=== PATIENT | male | born 1970 | race Caucasian/White ===

== ENCOUNTER 2019-09-06 19:05 | Inpatient (IN) | payer OTHER ==
[~2019-09-06 19:05] MED LIST: Iopamidol 370 76% 50 ML VIAL FS ONE; Iopamidol-370 76% 500 ML 1 ML ONE
[2019-09-06 19:43] LABS: #Basophils 0.1 thou/uL (0.0-0.2); #Eosinphils 0.1 thou/uL (0.0-0.7); #Lymphocytes 1.6 thou/uL (1.20-3.40); #Monocytes 0.7 thou/uL (0.11-0.59); Hemoglobin 15.7 g/dL (14.0-18.0); Mean Corpuscular HGB CONC 33.2 g/dL (32.0-36.0); Mean Corpuscular Hemoglobin 30.9 pg (27.0-31.0); Mean Corpuscular Volume 93.1 fL (78.0-98.0); Mean Platelet Volume 7.5 fL (7.4-10.4); Platelet Count 332 thou/uL (130-400); RBC Distribution Width 12.1 % (11.5-14.5); Red Blood Cell (RBC) Count 5.09 mill/uL (4.70-6.10); White Blood Cell (WBC) Count 9.5 thou/uL (4.8-10.8)
--- NOTE | 2019-09-06 20:01 | RAD ---
CHEST ONE VIEW: 09/06/19 HISTORY: Abdominal pain. COMPARISON: None. FINDINGS: The lungs are clear. No pneumothorax or effusion. The cardia silhouette and mediastinal contours are within normal limits. No acute osseous abnormality. IMPRESSION: No acute intrathoracic abnormality. POS: HOME
[2019-09-06 20:06] LABS: ALT (SGPT) 24 U/L (8-55); AST (SGOT) 14 U/L (5-34); Albumin 4.6 g/dL (3.5-5.0); Alkaline Phosphatase 77 U/L (40-110); Anion Gap 13 mmol/L (10-20); BUN (Urea Nitrogen) 18 mg/dL (8.9-20.6); Bilirubin, Total 0.4 mg/dL (0.2-1.2); Calc. Creatinine Clearance 0 mL/min (70-130); Calcium 9.8 mg/dL (7.8-10.44); Carbon Dioxide 27 mmol/L (22-29); Chloride 102 mmol/L (98-107); Estimated GFR-MDRD 79; Globulin 3.1 g/dL (2.4-3.5); Glucose 79 mg/dL (70-105); Potassium 3.9 mmol/L (3.5-5.1); Protein, Total 7.7 g/dL (6.0-8.3); Sodium 138 mmol/L (136-145)
--- NOTE | 2019-09-06 21:44 | CT ---
CT ABDOMEN AND PELVIS WITH CONTRAST: 09/06/19 HISTORY: Small bowel obstruction. COMPARISON: Radiograph same day of the abdomen. FINDINGS: Lung bases are clear. No pericardial effusion. Normal proximal small bowel rotation. There is cholelithiasis. No hydronephrosis. The adrenal glands are unremarkable. There are mildly distended loops of mid small bowel with contrast reaching the ileum. No distinct tra nsition point. The appendix is visualized and is normal. No mesenteric edema. The aortic contour is normal. No acute osseous abnormality. Advanced degenerative disc space disease at L5-S1 with superior end pl ate erosion and Schmorl's node at S1. Celiac trunk and superior mesenteric arteries are patent. IMPRESSION: 1. Mild dilatation of proximal small bowel loops with contrast extending to the ileum. There is no discrete transition point nor mesenteric fluid. Findings suggestive of an ileus versus a very low grade small bowel obstruction without transitional point identified. Follow-up radiographs of the abd omen in 8 to 12 hours recommended to evaluate for contrast transit. 2. Cholelithiasis without cholecystitis. POS: HOME
[2019-09-06 21:55] LABS: Bilirubin Negative (Negative); Blood, Urine Negative (Negative); Clarity Clear (Clear); Glucose, Urine (Dipstick) Normal (Negative); Leukocyte Negative Leu/uL (Negative); Nitrite Negative (Negative); Protein, Urine (Dipstick) Negative (Neg-Trace); Urobilinogen Normal mg/dL (Less than 2)
[2019-09-06] MEDS ORDERED: Benzocaine 20% Spray 60 ML CAN ONE (22:10)
[2019-09-06] MEDS ORDERED: Ondansetron PF 4 MG/2 ML Vial IVP PRN (22:54)
[2019-09-06] MEDS ORDERED: Ondansetron ODT 4 MG TAB PO PRN (22:54)
[2019-09-06] MEDS ORDERED: Morphine 2 MG/ML SYRINGE SLOW IVP PRN (22:59)
--- NOTE | 2019-09-06 23:04 | PDOC.HHP ---
Hospitalist HPI - History of Present Illness Abdominal pain History of Present Illness: PCP: Heri The patient is a 49/M with no significant PMH that presents to the ER for above complaint. The patient reports having abdominal pain x 4 days, describes as diffuse cramping with associated intermittent diarrhea and decreased appetite. He went to his PCP this morning. KUB showed concern for SBO. She instructed him to go to the ER. Denies any emesis or blood in stools. Denies any previous abdominal surgeries, recent travel or ingestion of uncooked foods. Reports recent bronchitis infection, treated with 2 different antibiotics. Denies any fever or chills. Has no other complaints at this time. ED Course: VS 98.2F, 121/84, 91, 16, 97%RA EKG NSR CT abd/pelvis mild dilation proximal small bowel loops extending to ileum, ileus vs low grade SBO WBC 9.5 LA 0.9 UA and CMP unremarkable CXR no acute process Allergies: NKDA Home Medications: 1. Simvastatin unk. dose Hospitalist ROS - Review of Systems Constitutional: denies: fever, chills, sweats, weakness, malaise, other Eyes: denies: pain, vision change, conjunctivae inflammation, eyelid inflammation, redness, other ENT: denies: ear pain, ear discharge, nose pain, nose discharge, nose congestion , mouth pain, mouth swelling, throat pain, throat swelling, other Respiratory: denies: cough, dry, shortness of breath, hemoptysis, SOB with excertion, pleuritic pain, sputum, wheezing, other Cardiovascular: denies: chest pain, palpitations, orthopnea, paroxysmal noc. dyspnea, edema, light headedness, other Gastrointestinal: reports: abdominal pain, diarrhea (intermittent). denies: nausea, vomiting Genitourinary: denies: dysuria, frequency, incontinence, hematuria, retention, other Neurological: denies: weakness, numbness, incoordination, change in speech, confusion, seizures, other Hospitalist History - Past Medical History Source: patient Cardiac: reports: Hyperlipidemia - Past Surgical History Past Surgical History: reports: no pertinent history - Family History Family History: reports: no pertinent history Other Family History: non contributory to this case - Social History Smoking Status: Never smoker Alcohol: reports: Rare Drugs: reports: none Living Situation: With Family 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, 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 Activity level: independent ambulation - Exam General Appearance: NAD, awake alert Eye: anicteric sclera ENT: normocephalic atraumatic ENT - other findings: NGT in place to low intermittent suction Neck: supple, no JVD Heart: RRR, no murmur, no gallops, no rubs, normal peripheral pulses Respiratory: CTAB, no wheezes, no rales, no ronchi, no tachypnea Gastrointestinal: soft, no guarding, no rigidity, distended, diminished bowl sounds Gastrointestinal - other findings: mildly tender to palpation, diffuse Extremities: no cyanosis, no edema Neurological: no focal deficits Psychiatric: normal affect, A&O x 3 Hospitalist Results - Labs Result Diagrams: 09/06/19 19:09/06/19 19:27 Lab results: WBC 9.5 thou/uL (4.8-10.8) 09/06/19 19: Hgb 15.7 g/dL (14.0-18.0) 09/06/19 19: Hct 47.4 % (42.0-52.0) 09/06/19 19: MCV 93.1 fL (78.0-98.0) 09/06/19 19: Plt Count 332 thou/uL (130-400) 09/06/19 19: Neutrophils % 74.0 % (42.0-75.0) 09/06/19 19:27 Sodium 138 mmol/L (136-145) 09/06/19 19:27 Potassium 3.9 mmol/L (3.5-5.1) 09/06/19 19:27 Chloride 102 mmol/L (98-107) 09/06/19 19:27 Carbon Dioxide 27 mmol/L (22-29) 09/06/19 19:27 BUN 18 mg/dL (8.9-20.6) 09/06/19 19:27 Creatinine 1.00 mg/dL (0.7-1.3) 09/06/19 19:27 Glucose 79 mg/dL (70-105) 09/06/19 19:27 Lactic Acid 0.9 mmol/L (0.5-2.2) 09/06/19 19:27 Calcium 9.8 mg/dL (7.8-10.44) 09/06/19 19:27 Total Bilirubin 0.4 mg/dL (0.2-1.2) 09/06/19 19:27 AST 14 U/L (5-34) 09/06/19 19:27 ALT 24 U/L (8-55) 09/06/19 19:27 Alkaline Phosphatase 77 U/L (40-110) 09/06/19 19:27 Serum Total Protein 7.7 g/dL (6.0-8.3) 09/06/19 19:27 Albumin 4.6 g/dL (3.5-5.0) 09/06/19 19:27 Urine Ketones Negative mg/dL (Negative) 09/06/19 21:39 Urine Blood Negative (Negative) 09/06/19 21:39 Urine Nitrite Negative (Negative) 09/06/19 21:39 Ur Leukocyte Esterase Negative Marc/uL (Negative) 09/06/19 21:39 - EKG Interpretation EKG: NSR - Radiology Interpretation CT scan - abdomen Status: report reviewed by me Chest x-ray Status: report reviewed by me Hospitalist H&P A/P - Problem (1) SBO (small bowel obstruction) Code(s): K56.609 - UNSP INTESTNL OBST, UNSP TO PARTIAL VERSUS COMPLETE OBST Status: Acute Assessment and Plan: Admit to medical floor, inpatient status Expected length of stay > [address] + partial SBO vs ileus LA 0.9, WBC 9.5 Will confirm placement NGT, put to intermittent suction Will start IVF hydration Will consult general surgery Will add zofran and morphine prn Will start PPI Will check lipase (2) Diarrhea Code(s): R19.7 - DIARRHEA, UNSPECIFIED Status: Acute Assessment and Plan: Had recent abx usage, describes as intermittent, had formed stools yesterday Will continue to monitor, likely secondary to problem #1 (3) Hyperlipidemia Code(s): E78.5 - HYPERLIPIDEMIA, UNSPECIFIED Status: Chronic Assessment and Plan: Takes simvastatin unknown dosage Will have nursing reconcile medications - Plan Plan: Consult PT SCDs for DVT prophylaxis Protonix for GI prophylaxis Full Code HALEY Quispe at [phone] Lerner
[2019-09-07 00:11] VITALS: BMI 32.5
[2019-09-07] MEDS: Sodium Chloride 0.9% 1,000 ML IV SCH ×2 (00:34→08:12)
[2019-09-07 05:47] LABS: #Basophils 0.1 thou/uL (0.0-0.2); #Eosinphils 0.2 thou/uL (0.0-0.7); #Lymphocytes 1.8 thou/uL (1.20-3.40); #Monocytes 0.7 thou/uL (0.11-0.59); %Basophils 0.7 % (0.0-1.0); %Eosinophils 2.2 % (0.0-10.0); %Lymphocytes 23.1 % (21.0-51.0); %Monocytes 8.7 % (0.0-10.0); %Neutrophils 65.3 % (42.0-75.0); Hemoglobin 13.9 g/dL (14.0-18.0); Mean Corpuscular HGB CONC 31.9 g/dL (32.0-36.0); Mean Corpuscular Hemoglobin 29.9 pg (27.0-31.0); Mean Corpuscular Volume 93.6 fL (78.0-98.0); Mean Platelet Volume 7.4 fL (7.4-10.4); Platelet Count 286 thou/uL (130-400); RBC Distribution Width 12.1 % (11.5-14.5); Red Blood Cell (RBC) Count 4.66 mill/uL (4.70-6.10); White Blood Cell (WBC) Count 7.6 thou/uL (4.8-10.8)
[2019-09-07 06:11] LABS: Anion Gap 13 mmol/L (10-20); BUN (Urea Nitrogen) 14 mg/dL (8.9-20.6); Calc. Creatinine Clearance 149 mL/min (70-130); Calcium 8.7 mg/dL (7.8-10.44); Carbon Dioxide 25 mmol/L (22-29); Chloride 105 mmol/L (98-107); Estimated GFR-MDRD Greater than 90; Glucose 79 mg/dL (70-105); Potassium 3.9 mmol/L (3.5-5.1); Sodium 139 mmol/L (136-145)
--- NOTE | 2019-09-07 07:16 | RAD ---
CHEST 1 VIEW: Date: 09/06/2019 HISTORY: NG tube placement. COMPARISON: Radiograph same date. FINDINGS: Enteric tube is in place with tip in the gastric body. IMPRESSION: Satisfactory location of the enteric tube. POS: HOME
[2019-09-07] MEDS ORDERED: Pantoprazole 40 MG VIAL IVP SCH (09:00)
[2019-09-07] MEDS: Saccharomyces boulardii 250 MG CAP PO SCH (10:16)
--- NOTE | 2019-09-07 10:58 | PDOC.HOSPP ---
- Subjective Encounter Date: 09/07/19 Encounter Time: 09:15 Subjective: pt does no have more diarrhea, this morning NG tube removed, started on diet - Objective Vital Signs & Weight: Vital Signs (12 hours) Temp Pulse Resp BP Pulse Ox 09/07/19 08:00 96 09/07/19 07:29 98.0 F 79 16 121/75 96 09/07/19 04:00 97.8 F 64 17 112/73 09/07/19 00:00 97.5 F L 81 18 121/81 97 Weight Weight 220 lb 14.451 oz Result Diagrams: 09/07/19 05:20 09/07/19 05:20 Radiology Reviewed by me: Yes EKG Reviewed by me: Yes Hospitalist ROS - Review of Systems Eyes: denies: pain, vision change, conjunctivae inflammation, eyelid inflammation, redness, other ENT: denies: ear pain, ear discharge, nose pain, nose discharge, nose congestion , mouth pain, mouth swelling, throat pain, throat swelling, other Respiratory: denies: cough, dry, shortness of breath, hemoptysis, SOB with excertion, pleuritic pain, sputum, wheezing, other Cardiovascular: denies: chest pain, palpitations, orthopnea, paroxysmal noc. dyspnea, edema, light headedness, other Gastrointestinal: denies: nausea, vomiting, abdominal pain, diarrhea, constipation, melena, hematochezia, other Genitourinary: denies: dysuria, frequency, incontinence, hematuria, retention, other Musculoskeletal: denies: neck pain, shoulder pain, arm pain, back pain, hand pain, leg pain, foot pain, other Skin: denies: rash, lesions, suellen, bruising, other - Medication Medications: Active Medications Generic Name Dose Route Start Last Admin Trade Name Freq PRN Reason Stop Dose Admin Sodium Chloride 1,000 mls @ 125 mls/hr 09/06/19 23:00 09/07/19 08:12 Normal Saline 0.9% IV 1,000 mls .Q8H THAIS Administration Pantoprazole Sodium 40 mg 09/07/19 09:00 09/07/19 08:09 Protonix IVP 40 mg Q12HR THAIS Administration Saccharomyces Boulardii 250 mg 09/07/19 09:00 09/07/19 10:16 Florastor PO 250 mg DAILY THAIS Administration - Exam General Appearance: NAD, awake alert Eye: PERRL, anicteric sclera ENT: normocephalic atraumatic, no oropharyngeal lesions Neck: supple, symmetric, no JVD, no thyromegaly Heart: RRR, no murmur, no gallops, no rubs Respiratory: CTAB, no wheezes, no rales, no ronchi Gastrointestinal: soft, non-tender, non-distended, normal bowel sounds Extremities: no cyanosis, no clubbing, no edema Skin: normal turgor, no lesions Neurological: no focal deficits Musculoskeletal: normal tone, normal strength Psychiatric: normal affect, normal behavior Hosp A/P (1) Diarrhea Code(s): R19.7 - DIARRHEA, UNSPECIFIED Status: Acute Qualifiers: Diarrhea type: unspecified type Qualified Code(s): R19.7 - Diarrhea, unspecified (2) SBO (small bowel obstruction) Code(s): K56.609 - UNSP INTESTNL OBST, UNSP TO PARTIAL VERSUS COMPLETE OBST Status: Ruled-out Plan: SBO ruled out (3) Hyperlipidemia Code(s): E78.5 - HYPERLIPIDEMIA, UNSPECIFIED Status: Chronic - Plan old records reviewed/req agree with DC NG tube regular diet ambulate check stool for c-diff will consider dc tomorrow
[2019-09-07] MEDS ORDERED: Loperamide HCl 2 MG CAP PO PRN (11:27)
[2019-09-07] MEDS ORDERED: Diabetic Tussin 200 MG/10 ML UDCUP PO PRN (11:27)
[2019-09-07] MEDS ORDERED: Calcium Carbonate 500 MG ChewTAB PO PRN (11:27)
[2019-09-07] MEDS ORDERED: Cepastat Lozenges 1 LOZ PO PRN (11:27)
[2019-09-07] MEDS ORDERED: hydrALAZINE 20 MG/ML VIAL SLOW IVP PRN (11:27)
[2019-09-07] MEDS ORDERED: Senokot S 8.6-50 MG TAB PO PRN (11:27)
[2019-09-07] MEDS ORDERED: Sodium Chloride 0.65% Nasal 44 ML BOT EA NARE PRN (11:27)
[2019-09-07] MEDS ORDERED: Loratadine 10 MG TAB PO PRN (11:27)
--- NOTE | 2019-09-07 11:29 | CON ---
DATE OF CONSULTATION: 09/07/2019 REQUESTING PHYSICIAN: Cesar Duarte NP HISTORY OF PRESENT ILLNESS: This is a 49-year-old man, who presented to emergency department yesterday complaining of a 4-day history of crampy abdominal pain associated with abdominal bloating and diarrhea. The patient denied any hematochezia or melena. Denied any nausea or vomiting. He has recently been treated for bronchitis 3 weeks ago first with a course of azithromycin for 1 week followed by one more week of a broad-spectrum antibiotic. He does not recall the name of the antibiotic, but thinks it might be levofloxacin. He denies any fevers or chills. He denies any unexplained weight loss. The patient was seen by his primary care physician, obtained abdominal x-ray, which was suspicious for partial small-bowel obstruction for which the patient was referred to the emergency department. Additional workup included CT scan of the abdomen and pelvis again revealed a few distended loops of small bowel. No clear transition zone. A nasogastric tube was placed, which has returned minimum nonbilious gastric effluent since placement of the tube. At the time of my evaluation, the patient is awake and alert. He reports minimal abdominal pain only with deep palpation. He passed flatus 15 minutes prior to my arrival. Last bowel movement was yesterday and was semiformed. PAST MEDICAL HISTORY: Pertinent for hyperlipidemia. PAST SURGICAL HISTORY: He denies any previous surgeries. SOCIAL HISTORY: He is , lives at home with his family. 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 He admits to occasional intake of ethanol in moderate amounts. He denies any cigarette smoking or illicit drug abuse. CURRENT MEDICATIONS: Include: 1. Simvastatin 40 mg p.o. daily. 2. Florastor, which was just started in this hospitalization 250 mg p.o. daily. ALLERGIES: TO PENICILLIN. REVIEW OF SYSTEMS: 10-point review of systems essentially unremarkable except as stated in past medical history and chief complaint. PHYSICAL EXAMINATION: GENERAL: This reveals a 49-year-old normally developed man, who is otherwise coherent, interactive, and appears stated age. The patient is alert and oriented x3. He appears to be in no acute distress at time of my evaluation. VITAL SIGNS: Include blood pressure 121/75, pulse is 79, respiratory rate is 16, temperature is 98 degrees Fahrenheit, oxygen saturation is 96% on room air. HEART: Reveals regular rate and rhythm. LUNGS: Clear to auscultation bilaterally. Breathing, regular and nonlabored. ABDOMEN: Soft and moderately distended, but nontender to palpation. He clearly has no peritoneal signs on examination. NEUROLOGIC: Reveals no focal deficits present. LABORATORY FINDINGS: Today include a CBC with 7600 white blood cells, hemoglobin and hematocrit are 13.9 and 43.6 respectively, platelet count is 286,000. Metabolic profile; sodium 139, potassium 3.9, chloride is 105, bicarb is 25, BUN 14, creatinine 0.85, glucose 79. I have personally reviewed the CT scan of the abdomen and pelvis obtained yesterday, which is only pertinent for moderately distended loops of mid small bowel. No transition zone noted. No free fluid. No pneumatosis intestinalis or pneumoperitoneum is evident. There is a large solitary gallstone, which is nonobstructive within the gallbladder lumen. IMPRESSION: 1. Resolving gastroenteritis versus Clostridium difficile colitis. 2. Cholelithiasis with no evidence of acute cholecystitis, although chronic cholecystitis could not be excluded. PLAN: 1. Nasogastric tube will be discontinued. The patient is started on diet. 2. Continue with serial physical examination and make further recommendations as necessary. 3. There clearly is no acute surgical indication for this patient at this time. I do not believe that this patient has any bowel obstruction. Thank you again, Dr. Duarte, for allowing me the opportunity to participate in the care of this patient. Job ID: [id number]
[2019-09-07] MEDS: Famotidine 20 MG TAB PO SCH (20:27)
[2019-09-07] MEDS ORDERED: Atorvastatin Calcium 20 MG TAB PO SCH (21:00)
[2019-09-08] MEDS: Saccharomyces boulardii 250 MG CAP PO SCH (07:39)
[2019-09-08] MEDS: Famotidine 20 MG TAB PO SCH (07:39)
--- NOTE | 2019-09-08 10:13 | PDOC.HOSPP ---
- Subjective Encounter Date: 09/08/19 Encounter Time: 09:15 Subjective: Patient seen and examined. No new complaints. No overnight events - Objective Vital Signs & Weight: Vital Signs (12 hours) Temp Pulse Resp BP Pulse Ox 09/08/19 08:02 98.3 F 88 19 120/80 97 Weight Admit Weight 220 lb 14.451 oz Weight 220 lb 14.451 oz I&O: 09/07/19 09/08/19 09/09/19 06:59 06:59 06:59 Intake Total 3009 Output Total 700 Balance 2309 Result Diagrams: 09/07/19 05:09/07/19 05:20 Hospitalist ROS - Review of Systems ENT: denies: ear pain, ear discharge, nose pain, nose discharge, nose congestion , mouth pain, mouth swelling, throat pain, throat swelling, other Respiratory: denies: cough, dry, shortness of breath, hemoptysis, SOB with excertion, pleuritic pain, sputum, wheezing, other Cardiovascular: denies: chest pain, palpitations, orthopnea, paroxysmal noc. dyspnea, edema, light headedness, other Gastrointestinal: denies: nausea, vomiting, abdominal pain, diarrhea, constipation, melena, hematochezia, other Genitourinary: denies: dysuria, frequency, incontinence, hematuria, retention, other Musculoskeletal: denies: neck pain, shoulder pain, arm pain, back pain, hand pain, leg pain, foot pain, other Skin: denies: rash, lesions, suellen, bruising, other - Medication Medications: Active Medications Generic Name Dose Route Start Last Admin Trade Name Freq PRN Reason Stop Dose Admin Atorvastatin Calcium 20 mg 09/07/19 21:00 09/07/19 20:27 Lipitor PO 20 mg HS THAIS Administration Famotidine 20 mg 09/07/19 21:00 09/08/19 07:39 Pepcid PO 20 mg BID THAIS Administration Saccharomyces Boulardii 250 mg 09/07/19 09:00 09/08/19 07:39 Florastor PO 250 mg DAILY THAIS Administration - Exam General Appearance: NAD, awake alert Eye: PERRL, anicteric sclera ENT: normocephalic atraumatic, no oropharyngeal lesions Neck: supple, symmetric, no JVD Heart: RRR, no murmur, no gallops Respiratory: CTAB, no wheezes, no rales, no ronchi Gastrointestinal: soft, non-tender, non-distended, normal bowel sounds Extremities: no cyanosis, no clubbing, no edema Skin: normal turgor, no lesions Neurological: no focal deficits Musculoskeletal: normal tone, normal strength Psychiatric: normal affect, normal behavior Hosp A/P (1) Diarrhea Code(s): R19.7 - DIARRHEA, UNSPECIFIED Status: Acute Qualifiers: Diarrhea type: unspecified type Qualified Code(s): R19.7 - Diarrhea, unspecified (2) SBO (small bowel obstruction) Code(s): K56.609 - UNSP INTESTNL OBST, UNSP TO PARTIAL VERSUS COMPLETE OBST Status: Ruled-out (3) Hyperlipidemia Code(s): E78.5 - HYPERLIPIDEMIA, UNSPECIFIED Status: Chronic - Plan old records reviewed/req agree with DC NG tube regular diet ambulate check stool for c-diff will consider dc tomorrow 09/08/19 c-dff negative Dc home
--- NOTE | 2019-09-08 10:55 | PRG ---
DATE OF SERVICE: 09/08/2019 SUBJECTIVE: Mr. Alcala is a 49-year-old man who was admitted with abdominal pain and suspicion for partial small bowel obstruction. The patient is awake and alert this morning. He denies any abdominal pain. He is passing flatus and has had a bowel movement which was semiformed within last 24 hours. He is tolerating general diet. OBJECTIVE: VITAL SIGNS: Include blood pressure 120/80, pulse 88, respiratory rate is 19, temperature 98.3 degrees Fahrenheit, and oxygen saturation is 97% on room air. ABDOMEN: Soft and distended with gas, but nontender to palpation. He clearly has no peritoneal signs on examination. IMPRESSION: 1. Resolved abdominal pain, likely secondary to gastroenteritis. The patient tested negative for Clostridium difficile colitis. 2. Asymptomatic cholelithiasis. I did discuss with the patient with regard to his large solitary gallstone without any symptoms at this time. PLAN: No further surgical indication is warranted. The patient may be discharged home at the discretion of the primary service. I advised the patient to follow up with his primary care physician for appropriate referral if he becomes symptomatic with regard to his gallstone. The patient indicates understanding of information given. I have answered his questions. Job ID: [id number]
--- NOTE | 2019-09-08 11:05 | DIS ---
DATE OF ADMISSION: 09/06/2019 DATE OF DISCHARGE: 09/08/2019 PRIMARY CARE PHYSICIAN: [facility] Call admission. DISCHARGE DISPOSITION: Home. PRIMARY DISCHARGE DIAGNOSES: 1. Partial small-bowel obstruction suspected ruled out. 2. Diarrhea, likely gastroenteritis, resolved. SECONDARY DISCHARGE DIAGNOSIS: Dyslipidemia. PRIMARY PROCEDURE/OPERATION: None. RADIOLOGICAL INVESTIGATION: Abdomen and pelvis CT scan showed finding suggestive of mild dilatation of proximal small bowel, cholelithiasis. Chest x-ray was normal. SIGNIFICANT LABORATORY DATA: WBC 7.6, hemoglobin 13.9, platelet 286. Sodium 139, creatinine 0.85. LFT normal. Lipase 14. Urinalysis normal. Stool for C diff negative. DISCHARGE MEDICATION: Simvastatin 40 mg p.o. daily. CONTRAINDICATION: None. CODE STATUS: Full code. INPATIENT TEST ENGINE OPERATOR: Dr. Terrell Badillo was consulted while in hospital. TEST RESULTS PENDING ON DISCHARGE: None. ALLERGIES: PENICILLIN. DISCHARGE PLAN: Posthospital, the patient will follow up with primary care physician. HOSPITAL COURSE: A 49-year-old male with above-mentioned medical problem, who was admitted by nurse practitioner. Please see his H and P for further details. The patient was having nausea, vomiting, diarrhea. He was having crampy abdominal pain. He had CT of abdomen and pelvis, which suspected ileus versus low-grade small-bowel obstruction. The patient was having diarrhea without any abdominal distention. He was treated with NG tube initially. Next, General Surgery was consulted. The patient's clinical presentation was not consistent with any small-bowel obstruction, rather mild ileus was possible, that was also improved. NG tube was discontinued, started on diet. We have ruled out C diff infection. The patient was tolerating his diet without any problem. He remained stable while in hospital and we are discharging him today. The patient will continue all his previous medication. The patient is seen and examined at bedside today. Please see my progress note from today for further detail. Job ID: [id number]
[2019-09-08 11:27] VITALS: BP 123/75; TEMP 97.6
--- NOTE | 2019-09-15 15:48 | EKG ---
Test Reason : ABD PAIN Blood Pressure : / mmHG Vent. Rate : 077 BPM Atrial Rate : 077 BPM P-R Int : 162 ms QRS Dur : 110 ms QT Int : 390 ms P-R-T Axes : 040 -03 018 degrees QTc Int : 441 ms Normal sinus rhythm Normal ECG Confirmed by JIGNESH POON DO ([id number]), copy editor SYLVAIN ARGUETA ([id number]) on 09/15/2019 3:47:36 PM Referred By: Confirmed By:JIGNESH POON DO
== END 2019-09-08 11:25 | disposition home or self-care (01) | DRG 392 ==
LOC: ERS 19:05 → T4-B 22:48
PROVIDERS: ADMIT Internal Medicine; ATTEND Internal Medicine
DX: K52.9 Noninfective gastroenteritis and colitis, unspecified (principal); K56.7 Ileus, unspecified; E78.5 Hyperlipidemia, unspecified; K80.20 Calculus of gallbladder without cholecystitis without obstruction; Z79.899 Other long term (current) drug therapy; Z88.0 Allergy status to penicillin
CPT/HCPCS: 36415; 71045; 74177; 80048; 80053; 81003; 83605; 83690; 85025; 87324; 87449; 93005; C9113; Q9967

== ENCOUNTER 2021-12-31 17:00 | Outpatient (CLI) | payer BC | END 2021-12-31 17:01 | disposition home or self-care (01) | LOC: SLEEPLAB 17:00 | PROVIDERS: ATTEND Internal Medicine | DX: G47.33 Obstructive sleep apnea (adult) (pediatric) (principal) | CPT/HCPCS: 95800 ==